=== PATIENT | male | born 1985 | race American Indian/Alaskan Native ===

== ENCOUNTER 2017-06-10 15:31 | Emergency (ER) | payer MEDICAID ==
[2017-06-10 15:48] VITALS: BP 133/76; PULSE 77; RESP 18; TEMP 98.5; O2SAT 98
--- NOTE | 2017-06-10 16:10 | ED PDOC ---
HPI:Nausea, Vomiting, Diarrhea Time Seen by Provider: 06/10/17 15:55 Chief Complaint (Nursing): Shortness Of Breath Chief Complaint (Provider): Chest discomfort/Diarrhea History Per: Patient History/Exam Limitations: no limitations Onset/Duration Of Symptoms: Days Current Symptoms Are (Timing): Still Present Have you had recent travel within the past 21 days to any of the following countries: [place], [place], [place] or [place]?: No Pain Scale Rating Of: 0 Quality Of Discomfort: Other (Congestion) Associated Symptoms: Diarrhea (3 soft diarrhea NBNM) Alleviating Factors: Other ("Burping") Additional Complaint(s): 31 y/o M with PMH of intermittent asthma present to ED because of persistent chest discomfort for the past 2 days. Patient states he feels his chest congested and that sensation improves/resolves whenever he burps, which he states has been happening more often in the past couple of days than in the past. For that reason he has been trying to avoid fatty food, he stopped smoking 2 weeks ago, denies ETOH ingestion for the past 2 weeks. Denies CP, headaches, palpitations, abd pain, blood in stools, vomiting or nausea. Admits heartburn sometimes. Patient has had 3 episodes of soft stools today NBNM. Denies recent traveling. Patient does not have a PMD Past Medical History Vital Signs: Last Vital Signs Temp 98.5 F 06/10/17 15:47 Pulse 77 06/10/17 15:47 Resp 18 06/10/17 15:47 BP 133/76 06/10/17 15:47 Pulse Ox 98 06/10/17 15:47 - Medical History PMH: Asthma - Surgical History Other surgeries: Knee Sx - Family History Family History: States: CAD (Father at the age of 52 ) - Social History Current smoker - smoking cessation education provided: No (Quit 2 weeks ago) Alcohol: Occasional Drugs: Denies - Immunization History Hx Tetanus Toxoid Vaccination: No Hx Influenza Vaccination: No Hx Pneumococcal Vaccination: No - Home Medications Home Medications: Ambulatory Orders Medication Instructions Recorded Omeprazole 20 mg PO DAILY #14 tablet. 06/10/17 - Allergies Allergies/Adverse Reactions: Allergies Allergy/AdvReac Type Severity Reaction Status Date / Time Penicillins Allergy RASH Verified 06/10/17 15:36 Review of Systems ROS Statement: Except As Marked, All Systems Reviewed And Found Negative Gastrointestinal: Positive for: Diarrhea, Other (Heartburn, Bloating) Physical Exam - Reviewed Nursing Documentation Reviewed: Yes Vital Signs Reviewed: Yes - Physical Exam Appears: Positive for: Non-toxic, No Acute Distress Skin: Positive for: Normal Color Eye Exam: Positive for: EOMI, PERRL Cardiovascular/Chest: Positive for: Regular Rate, Rhythm. Negative for: Murmur Respiratory: Positive for: Normal Breath Sounds. Negative for: Crackles, Wheezing Gastrointestinal/Abdominal: Positive for: Bowel Sounds, Soft, Tenderness (Mild diffuse abd tenderness ). Negative for: Mass, Distended, Guarding, Rebound Neurologic/Psych: Positive for: Alert, Oriented - ECG ECG: Positive for: Viewed By Me (Normal) O2 Sat by Pulse Oximetry: 98 - Progress ED Course And Treament: Patient EKG normal. Symptoms consistent with dyspepsia and/or gastroenteritis. He needs to f/u with PMD. Will start him on Omeprazole PO. Instructed to avoid spicy foods, tomato sauce, canned,fried or fatty foods, ETOH, Smoking. Medical Decision Making Medical Decision Makin31 y/o M with PMHx of asthma presents for chest discomfort bloating and diarrhea Dyspepsia vs Gastroenteritis vs Acute Gastritis EKG normal Start Omeprazole PO Patient needs f/u with PMD for further testing and treatment Disposition - Clinical Impression Clinical Impression: GERD (gastroesophageal reflux disease), Dyspepsia - Patient ED Disposition Is Patient to be Admitted: No - Disposition Referrals: [facility] [Outside] Disposition: Routine/Home Disposition Time: 16:25 Condition: GOOD Additional Instructions: F/U with PMD in 2-3 days IF worsening of symptoms, vomiting, diarrhea, severe abd pain or any other concerns return to ED Prescriptions: Omeprazole 20 mg PO DAILY #14 tablet. Instructions: Gastroesophageal Reflux Disease (ED) Forms: [employer] (Surinamese)
== END 2017-06-10 16:58 | disposition home or self-care (01) ==
LOC: H.ER 15:31
DX: K21.9 Gastro-esophageal reflux disease without esophagitis (principal); J45.909 Unspecified asthma, uncomplicated; Z88.0 Allergy status to penicillin; R12 Heartburn

== ENCOUNTER 2017-06-13 10:13 | Emergency (ER) | payer MEDICAID ==
[2017-06-13 10:21] VITALS: BMI 37.6
[2017-06-13 10:26] VITALS: O2SAT 98
[2017-06-13 10:38] VITALS: BP 127/75; PULSE 71; RESP 18; TEMP 98.2
--- NOTE | 2017-06-13 10:57 | ED PDOC ---
HPI: General Adult Time Seen by Provider: 06/13/17 10:25 Chief Complaint (Nursing): Shortness Of Breath Chief Complaint (Provider): Shortness Of Breath History Per: Patient History/Exam Limitations: no limitations Onset/Duration Of Symptoms: Days (x3 weeks) Current Symptoms Are (Timing): Still Present Additional Complaint(s): 31 y/o male with a past medical history of asthma who presents to the emergency department with a complaint of intermittent shortness of breath with chest tightness x3 weeks. Denies cough, chest pain, or fever. Past Medical History Reviewed: Historical Data, Nursing Documentation, Vital Signs Vital Signs: Last Vital Signs Temp 98.2 F 06/13/17 10:37 Pulse 71 06/13/17 10:37 Resp 18 06/13/17 10:37 BP 127/75 06/13/17 10:37 Pulse Ox 98 06/13/17 10:59 - Medical History PMH: Asthma - Family History Family History: States: CAD (Father at the age of 52 ) - Social History Current smoker - smoking cessation education provided: No Alcohol: None Drugs: Denies - Immunization History Hx Tetanus Toxoid Vaccination: No Hx Influenza Vaccination: No Hx Pneumococcal Vaccination: No - Home Medications Home Medications: Ambulatory Orders Medication Instructions Recorded Albuterol HFA [Ventolin HFA 90 2 puff IH Q4H #1 puff 06/10/17 mcg/actuation (8 g)] Omeprazole 20 mg PO DAILY #14 tablet. 06/10/17 Albuterol HFA [Ventolin HFA 90 2 puff IH Q4H #1 puff 06/13/17 mcg/actuation (8 g)] predniSONE [predniSONE Tab] 10 mg PO TID #15 tab 06/13/17 - Allergies Allergies/Adverse Reactions: Allergies Allergy/AdvReac Type Severity Reaction Status Date / Time Penicillins Allergy RASH Verified 06/13/17 10:24 Review of Systems ROS Statement: Except As Marked, All Systems Reviewed And Found Negative Constitutional: Negative for: Fever Cardiovascular: Positive for: Other (Chest tightness). Negative for: Chest Pain Respiratory: Positive for: Shortness of Breath. Negative for: Cough Physical Exam - Reviewed Nursing Documentation Reviewed: Yes Vital Signs Reviewed: Yes - Physical Exam Appears: Positive for: Non-toxic, No Acute Distress Head Exam: Positive for: ATRAUMATIC, NORMAL INSPECTION, NORMOCEPHALIC Skin: Positive for: Normal Color, Warm, Dry Neck: Positive for: Normal, Supple Cardiovascular/Chest: Positive for: Regular Rate, Rhythm. Negative for: Murmur Respiratory: Positive for: Decreased Breath Sounds. Negative for: Normal Breath Sounds, Wheezing, Respiratory Distress Extremity: Positive for: Normal ROM (Full). Negative for: Calf Tenderness, Swelling Neurologic/Psych: Positive for: Alert, Oriented - ECG O2 Sat by Pulse Oximetry: 98 (RA) Pulse Ox Interpretation: Normal Medical Decision Making Medical Decision Making: Time: 10:46 Initial impression: Shortness of breath Initial plan: --Chest Two Views --Prednisone 20 mg PO --Reevaluation Scribe Attestation: Documented by Racquel Candelario, acting as a scribe for Kevin Pena MD. Provider Scribe Attestation: All medical record entries made by the Scribe were at my direction and personally dictated by me. I have reviewed the chart and agree that the record accurately reflects my personal performance of the history, physical exam, medical decision making, and the department course for this patient. I have also personally directed, reviewed, and agree with the discharge instructions and disposition. Disposition - Clinical Impression Clinical Impression: Asthma - Patient ED Disposition Is Patient to be Admitted: No Counseled Patient/Family Regarding: Studies Performed, Diagnosis, Need For Followup, Rx Given - Disposition Referrals: [facility] [Outside] Disposition: Routine/Home Disposition Time: 11:10 Condition: FAIR Prescriptions: Albuterol HFA [Ventolin HFA 90 mcg/actuation (8 g)] 2 puff IH Q4H #1 puff predniSONE [predniSONE Tab] 10 mg PO TID #15 tab Instructions: Asthma (ED) Forms: [employer] (Belarusian)
--- NOTE | 2017-06-13 12:57 | RAD ---
HISTORY: cough COMPARISON: No prior. TECHNIQUE: Chest PA and lateral FINDINGS: LUNGS: No active pulmonary disease. PLEURA: No significant pleural effusion identified. No pneumothorax apparent. CARDIOVASCULAR: Normal. OSSEOUS STRUCTURES: No significant abnormalities. VISUALIZED UPPER ABDOMEN: Normal. OTHER FINDINGS: None. IMPRESSION: No active disease.
== END 2017-06-13 11:39 | disposition home or self-care (01) ==
LOC: H.ER 10:13
DX: J45.909 Unspecified asthma, uncomplicated (principal); Z88.0 Allergy status to penicillin

== ENCOUNTER 2017-12-23 08:15 | Emergency (ER) | payer MEDICAID ==
[2017-12-23 08:15] VITALS: BMI 37.6
[2017-12-23 08:35] VITALS: O2SAT 98
--- NOTE | 2017-12-23 09:50 | RAD ---
HISTORY: chest pain COMPARISON: 06/13/2017 TECHNIQUE: Chest PA and lateral FINDINGS: LUNGS: No active pulmonary disease. PLEURA: No significant pleural effusion identified. No pneumothorax apparent. CARDIOVASCULAR: Normal. OSSEOUS STRUCTURES: No significant abnormalities. VISUALIZED UPPER ABDOMEN: Normal. OTHER FINDINGS: None. IMPRESSION: No active disease.
--- NOTE | 2017-12-23 09:59 | ED PDOC ---
HPI: Chest Pain Time Seen by Provider: 12/23/17 09:10 Chief Complaint (Nursing): Chest Pain Chief Complaint (Provider): Dyspnea, Chest Pain History Per: Patient History/Exam Limitations: no limitations Onset/Duration Of Symptoms: Days (x 1) Current Symptoms Are (Timing): Still Present Additional Complaint(s): Gab is a 32 y/o male who presents to the ED complaining of difficulty breathing and chest discomfort that started yesterday and got worse this morning , prompting his visit. Patient states the symptoms are not painful but notes he feels congested and short of breath. He denies fever, cough, dizziness, back pain, or radiation of symptoms in the last 2 days. He thinks the cause might be gas because he was diagnosed with acid reflux before but is not on any medication. PMD: None Past Medical History Reviewed: Historical Data, Nursing Documentation, Vital Signs Vital Signs: Last Vital Signs Temp 98.2 F 12/23/17 08:34 Pulse 75 12/23/17 08:45 Resp 16 12/23/17 08:34 BP 124/81 12/23/17 08:34 Pulse Ox 98 12/23/17 10:12 - Medical History PMH: Asthma (mild, not on medication), GERD - Surgical History Other surgeries: left knee surgery - Family History Family History: States: CAD (Father at the age of 52 ) - Immunization History Hx Tetanus Toxoid Vaccination: No Hx Influenza Vaccination: No Hx Pneumococcal Vaccination: No - Home Medications Home Medications: Ambulatory Orders Medication Instructions Recorded Albuterol HFA [Ventolin HFA 90 2 puff IH Q4H #1 puff 06/10/17 mcg/actuation (8 g)] Albuterol HFA [Ventolin HFA 90 2 puff IH Q4H #1 puff 06/13/17 mcg/actuation (8 g)] predniSONE [predniSONE Tab] 10 mg PO TID #15 tab 06/13/17 Omeprazole 20 mg PO DAILY #30 tablet. 12/23/17 - Allergies Allergies/Adverse Reactions: Allergies Allergy/AdvReac Type Severity Reaction Status Date / Time Penicillins Allergy RASH Verified 06/13/17 10:24 DORA Risk Score for UA/NSTEMI - DORA Risk Score Age > 64: NO 3 or more CAD Risk Factors: NO Known CAD (Stenosis greater than 50%): NO Aspirin use in past 7 days: NO Severe Angina: NO EKG ST changes greater than 0.5mm: NO Positive Cardiac Marker: NO DORA Score: 0 Risk %: 5% Wells Criteria for PE - Wells Criteria for Pulmonary Embolism Clinical Signs and Symptoms of DVT: No P.E is #1 Diagnosis, or Equally Likely: No Heart Rate >100: No Immobilization at least 3 days;Surgery previous 4 weeks: No Previous, objectively diagnosed PE or DVT: No Hemoptysis: No Malignancy w/treatment within 6 months, or palliative: No Total Score: 0 Review of Systems ROS Statement: Except As Marked, All Systems Reviewed And Found Negative Constitutional: Negative for: Fever Cardiovascular: Positive for: Chest Pain (discomfort) Respiratory: Positive for: Shortness of Breath. Negative for: Cough Musculoskeletal: Negative for: Back Pain Neurological: Negative for: Dizziness Physical Exam - Reviewed Nursing Documentation Reviewed: Yes Vital Signs Reviewed: Yes - Physical Exam Appears: Positive for: Non-toxic, No Acute Distress Head Exam: Positive for: ATRAUMATIC, NORMOCEPHALIC Skin: Positive for: Normal Color, Warm, Dry Eye Exam: Positive for: EOMI, Normal appearance, PERRL Neck: Positive for: Normal, Painless ROM, Supple Cardiovascular/Chest: Positive for: Regular Rate, Rhythm. Negative for: Murmur Respiratory: Positive for: Normal Breath Sounds. Negative for: Respiratory Distress Gastrointestinal/Abdominal: Positive for: Normal Exam, Soft. Negative for: Tenderness Back: Positive for: Normal Inspection. Negative for: L CVA Tenderness, R CVA Tenderness, Vertebral Tenderness Extremity: Positive for: Normal ROM. Negative for: Pedal Edema, Deformity Neurologic/Psych: Positive for: Alert, Oriented. Negative for: Motor/Sensory Deficits - Laboratory Results Result Diagrams: 12/23/17 09:32 12/23/17 09:32 - ECG ECG: Positive for: Interpreted By Me, Viewed By Me ECG Rhythm: Positive for: Normal QRS, Normal ST Segment, Sinus Rhythm. Negative for: ST/T Changes Rate: 74 O2 Sat by Pulse Oximetry: 98 (RA) Pulse Ox Interpretation: Normal - Radiology X-Ray: Interpreted by Me, Viewed By Me, Read By Radiologist X-Ray Interpretation: No Acute Disease Medical Decision Making Medical Decision Making: Time: 9:23 Initial Impression: Chest Pain; Differentials include ACS, GERD, less likely asthma Initial Plan: --EKG --BMP --Troponin --CBC --Chest XR Time: 9:48 CHEST XR FINDINGS: LUNGS: No active pulmonary disease. PLEURA: No significant pleural effusion identified. No pneumothorax apparent. CARDIOVASCULAR: Normal. OSSEOUS STRUCTURES: No significant abnormalities. VISUALIZED UPPER ABDOMEN: Normal. OTHER FINDINGS: None. IMPRESSION: No active disease. Scribe Attestation: Documented by Ramirez White, acting as a scribe for Dr. Angel Alford MD. Provider Scribe Attestation: All medical record entries made by the Scribe were at my direction and personally dictated by me. I have reviewed the chart and agree that the record accurately reflects my personal performance of the history, physical exam, medical decision making, and the department course for this patient. I have also personally directed, reviewed, and agree with the discharge instructions and disposition. Disposition - Clinical Impression Clinical Impression: GERD (gastroesophageal reflux disease), Chest pain - Patient ED Disposition Is Patient to be Admitted: No Doctor Will See Patient In The: Office Counseled Patient/Family Regarding: Studies Performed, Diagnosis, Need For Followup - Disposition Referrals: [facility] [Outside] Disposition: Routine/Home Disposition Time: 12:27 Condition: GOOD Additional Instructions: Take your medications as instructed. Follow up with your PCP in 2-3 days. Prescriptions: Omeprazole 20 mg PO DAILY #30 tablet. Instructions: Chest Pain (ED), Gastroesophageal Reflux Disease (ED)
[2017-12-23 10:05] LABS: BASO # 0.1 K/uL (0.0-0.2); BASO % 1.2 % (0.0-2.0); EOS # 0.2 K/uL (0.0-0.7); HEMOGLOBIN 15.5 g/dL (12.0-18.0); LYMPH # 1.8 K/uL (1.0-4.3); LYMPH % 32.1 % (20.0-40.0); MEAN CELL VOLUME 83.4 fl (80.0-94.0); MEAN CORPUSCULAR HGB CONC 33.6 g/dL (33.0-37.0); MONO # 0.6 K/uL (0.0-0.8); MONO % 10.5 % (0.0-10.0); NEUT # 2.9 K/uL (1.8-7.0); NEUT % 53.2 % (50.0-75.0); NRBC % 0.3 % (0.0-0.0); RBC 5.51 Mil/uL (4.40-5.90); RED CELL DISTRIBUTION WIDTH 14.4 % (11.5-14.5); WHITE BLOOD COUNT 5.5 K/uL (4.8-10.8)
[2017-12-23 10:16] LABS: BLOOD UREA NITROGEN 18 mg/dl (9-20); CALCIUM 9.6 mg/dL (8.4-10.2); GFR AFRICAN-AMERICAN > 60; GFR NON-AFRICAN AMERICAN > 60
[2017-12-23 12:29] VITALS: PULSE 74
[2017-12-23 12:51] VITALS: BP 122/75; RESP 14; TEMP 98
--- NOTE | 2017-12-23 14:06 | CARD ---
APPROVED REPORT EKG Measurement Heart [id number] <Conclusion> Normal sinus rhythm Normal ECG
== END 2017-12-23 12:48 | disposition home or self-care (01) ==
LOC: H.ER 08:15
DX: K21.9 Gastro-esophageal reflux disease without esophagitis (principal); R07.89 Other chest pain

== ENCOUNTER 2018-11-19 12:01 | Emergency (ER) | payer MEDICAID ==
[2018-11-19 12:10] VITALS: BMI 41.5
[2018-11-19 12:16] VITALS: RESP 18
--- NOTE | 2018-11-19 13:28 | ED PDOC ---
HPI: General Adult Time Seen by Provider: 11/19/18 12:27 Chief Complaint (Nursing): Back Pain Chief Complaint (Provider): Back Pain History Per: Patient History/Exam Limitations: no limitations Onset/Duration Of Symptoms: Days (x2 weeks) Current Symptoms Are (Timing): Still Present Additional Complaint(s): 33 year old male with hx of back problems presents to the ED for evaluation of lower back pain s/p picking a heavy object up off the ground two weeks ago. He states he was advised by his coworkers to follow up with a "doctor from work," and was evaluated four days ago, sent home with scripts for an ant-inflammatory and a muscle relaxer, which he reports using with moderate relief of pain. However, four days ago he also notes developing weakness, nausea, and radiation of the back pain into his groin area and testicles. Otherwise denies vomiting, headache, chest pain, shortness of breath, palpitations, dysuria, hematuria, incontinence, saddle paresthesias, fever, and chills. Of note, patient last took medication yesterday evening and had none today. PMD: none provided Past Medical History Reviewed: Historical Data, Nursing Documentation, Vital Signs Vital Signs: Last Vital Signs Temp 98.7 F 11/19/18 12:13 Pulse 88 11/19/18 12:13 Resp 18 11/19/18 12:13 BP 160/92 H 11/19/18 12:13 Pulse Ox 100 11/19/18 12:13 - Medical History PMH: Asthma (mild, not on medication), Back Problems, GERD, Sexually Transmitted Disease (chlamydia and gonorrhea) - Surgical History Other surgeries: left knee surgery - Family History Family History: States: CAD (Father at the age of 52 ) - Social History Current smoker - smoking cessation education provided: No Ex-Smoker (has not smoked in the last 12 months): Yes Alcohol: Social Drugs: Denies - Immunization History Hx Tetanus Toxoid Vaccination: No Hx Influenza Vaccination: No Hx Pneumococcal Vaccination: No - Home Medications Home Medications: Ambulatory Orders Medication Instructions Recorded Albuterol HFA [Ventolin HFA 90 2 puff IH Q4H #1 puff 06/13/17 mcg/actuation (8 g)] Ibuprofen [Motrin Tab] 600 mg PO QID #42 tab 10/27/18 - Allergies Allergies/Adverse Reactions: Allergies Allergy/AdvReac Type Severity Reaction Status Date / Time Penicillins Allergy RASH Verified 11/19/18 12:12 Review of Systems ROS Statement: Except As Marked, All Systems Reviewed And Found Negative Constitutional: Positive for: Weakness. Negative for: Fever, Chills Cardiovascular: Negative for: Chest Pain, Palpitations Respiratory: Negative for: Shortness of Breath Gastrointestinal: Positive for: Nausea. Negative for: Vomiting Genitourinary Male: Negative for: Dysuria, Incontinence, Hematuria Musculoskeletal: Positive for: Back Pain (lower radiating to groin and testicles) Neurological: Negative for: Headache, Other (saddle paresthesias) Physical Exam - Reviewed Nursing Documentation Reviewed: Yes Vital Signs Reviewed: Yes - Physical Exam Appears: Positive for: No Acute Distress Head Exam: Positive for: ATRAUMATIC, NORMOCEPHALIC Skin: Positive for: Normal Color, Warm, DRY Eye Exam: Positive for: EOMI, Normal appearance, PERRL Neck: Positive for: Normal, Painless ROM, Supple Cardiovascular/Chest: Positive for: Regular Rate, Rhythm Respiratory: Positive for: Normal Breath Sounds. Negative for: Respiratory Distress Gastrointestinal/Abdominal: Positive for: Normal Exam, Soft. Negative for: Tenderness Back: Positive for: Normal Inspection. Negative for: L CVA Tenderness, R CVA Tenderness, Vertebral Tenderness Extremity: Positive for: Normal ROM, Other (bilateral upper and lower extremi ties strength 5/5) Neurologic/Psych: Positive for: Alert, Oriented (x3). Negative for: Motor/Sensory Deficits - Laboratory Results Result Diagrams: 11/19/18 13:29 11/19/18 13:29 - ECG O2 Sat by Pulse Oximetry: 100 (RA) Pulse Ox Interpretation: Normal - Progress ED Course And Treament: TVUS: Negative study for epididymitis, orchitis, torsion or testicular mass. Additional benign and/or incidental findings described above. Informed of resutls and need for further evaluation of inguinal LAD. Agrees with plan and care. Advised to f/u with [facility] for further evaluation but is to return to ED immediately if symptoms worsen. Pt. verbalized correct understanding of f/u and treatment plan to provider. Medical Decision Making Medical Decision Making: Time: 1300 Initial Impression: lower back pain Initial Plan: --CMP --Drug screen --CBC with differential --Urinalysis --US testes duplex Scribe Attestation: Documented by Rosana Varghese, acting as a scribe for Camron López PA-C. Provider Scribe Attestation: All medical record entries made by the Scribe were at my direction and personally dictated by me. I have reviewed the chart and agree that the record accurately reflects my personal performance of the history, physical exam, med Share Some Style decision making, and the department course for this patient. I have also personally directed, reviewed, and agree with the discharge instructions and disposition. Disposition - Clinical Impression Clinical Impression: Weakness, Low back pain - Patient ED Disposition Is Patient to be Admitted: No - Disposition Referrals: [facility] [Outside] Disposition: Routine/Home Disposition Time: 15:00 Condition: STABLE Additional Instructions: FOLLOW UP WITH [facility] FOR FURTHER EVALUATION RETURN TO ED IMMEDIATELY IF SYMPTOMS WORSEN TOY RODRIGUEZ, thank you for letting us take care of you today. Your provider was Bruna Douglas MD and you were treated for WEAKNESS,NAUSEA. The emergency medical care you received today was directed at your acute symptoms. If you were prescribed any medication, please fill it and take as directed. It may take several days for your symptoms to resolve. Return to the Emergency Department if your symptoms worsen, do not improve, or if you have any other problems. Please contact your doctor or call one of the physicians/clinics you have been referred to that are listed on the Patient Visit Information form that is included in your discharge packet. Bring any paperwork you were given at discharge with you along with any medications you are taking to your follow up visit. Our treatment cannot replace ongoing medical care by a primary care provider outside of the emergency department. Thank you for allowing the [facility] team to be part of your care today. If you had an X-Ray or CT scan: A Radiologist will review the ED reading if any change in treatment is needed we will contact you. If you had a blood, urine, or wound culture: It will take several days for the results, if any change in treatment is needed we will contact you. If you had an STI test: It will take 48 hours for the results. Please call after 1 week if you have not heard back. Instructions: Weakness (ED), Low Back Pain (DC) Forms: [employer] (Lithuanian)
[2018-11-19 13:49] LABS: BASO # 0.1 K/uL (0.0-0.2); BASO % 0.8 % (0.0-2.0); EOS # 0.1 K/uL (0.0-0.7); EOS % 1.8 % (0.0-4.0); HEMOGLOBIN 16.1 g/dL (12.0-18.0); LYMPH # 1.7 K/uL (1.0-4.3); LYMPH % 24.1 % (20.0-40.0); MEAN CELL VOLUME 83.8 fl (80.0-94.0); MEAN CORPUSCULAR HEMOGLOBIN 28.3 pg (27.0-31.0); MEAN CORPUSCULAR HGB CONC 33.8 g/dL (33.0-37.0); MEAN PLATELET VOLUME 10.9 fl (7.2-11.7); MONO # 0.7 K/uL (0.0-0.8); MONO % 9.8 % (0.0-10.0); NEUT # 4.5 K/uL (1.8-7.0); NEUT % 63.5 % (50.0-75.0); NRBC % 0.2 % (0.0-0.0); RBC 5.68 Mil/uL (4.40-5.90); RED CELL DISTRIBUTION WIDTH 14.3 % (11.5-14.5)
[2018-11-19 13:54] LABS: URINE AMORPHOUS SEDIMENT RARE /ul (<OCC); URINE BILIRUBIN NEGATIVE (NEGATIVE); URINE BLOOD NEGATIVE (NEGATIVE); URINE CLARITY CLEAR (Clear); URINE COLOR YELLOW (YELLOW); URINE GLUCOSE (UA) NEG (NEGATIVE); URINE LEUKOCYTE ESTERASE NEG Leu/uL (Negative); URINE PROTEIN NEGATIVE (NEGATIVE); URINE UROBILINOGEN 0.2-1.0 mg/dL (0.2-1.0)
[2018-11-19 14:02] LABS: ALB/GLOB RATIO 1.1 (1.0-2.1); ALBUMIN 4.5 g/dL (3.5-5.0); ALT/SGPT 37 U/L (21-72); AST/SGOT 40 U/L (17-59); BLOOD UREA NITROGEN 17 mg/dl (9-20); CALCIUM 9.7 mg/dL (8.4-10.2); GFR NON-AFRICAN AMERICAN > 60
[2018-11-19 14:29] LABS: BARBITURATES, UR NEGATIVE (NEGATIVE); BENZODIAZEPINES, UR NEGATIVE (NEGATIVE); OPIATES, UR NEGATIVE (NEGATIVE); PHENCYCLIDINE, UR NEGATIVE (NEGATIVE)
--- NOTE | 2018-11-19 14:39 | US ---
Date of service: 11/19/2018 HISTORY: b/l groin pain TECHNIQUE: Realtime sonography through the scrotum with color and doppler flow. COMPARISON: None Available. FINDINGS: RIGHT TESTICLE: Measures 1.7 x 2.5 x 3.2 cm. Normal echotexture and flow. RIGHT EPIDIDYMIS: Epididymal head measures 0.8 x 1 x 1.0 cm. Grossly unremarkable appearance with normal flow. LEFT TESTICLE: Measures 2.7 x 2.2 x 3.8 cm. Normal echotexture and flow. LEFT EPIDIDYMIS: Epididymal head measures 0.9 x 1 x 1.2 cm. Left epididymal cyst 3 x 5 mm. HYDROCELE: Trace, bilaterally symmetrical and presumed physiologic hydroceles. VARICOCELE: None. OTHER FINDINGS: Morphologically, unremarkable lymph node(s) including right inguinal region measuring 0.7 x 1.7 cm. The largest left inguinal lymph node 0.7 x 2.7 cm IMPRESSION: Negative study for epididymitis, orchitis, torsion or testicular mass. Additional benign and/or incidental findings described above..
[2018-11-19 16:37] VITALS: BP 138/79; PULSE 86; TEMP 98.9
[2018-11-19 16:42] VITALS: O2SAT 98
== END 2018-11-19 16:25 | disposition home or self-care (01) ==
LOC: H.ER 12:01
DX: M54.5 Low back pain (principal); R53.1 Weakness; J45.909 Unspecified asthma, uncomplicated; Z87.891 Personal history of nicotine dependence; Z88.0 Allergy status to penicillin

== ENCOUNTER 2018-12-01 17:58 | Emergency (ER) | payer BC, MEDICAID ==
[2018-12-01 17:58] VITALS: BMI 41.5
--- NOTE | 2018-12-01 21:44 | ED PDOC ---
HPI: Chest Pain Time Seen by Provider: 12/01/18 21:26 Chief Complaint (Nursing): Chest Pain Chief Complaint (Provider): chest pain History Per: Patient History/Exam Limitations: no limitations Onset/Duration Of Symptoms: Days (3) Current Symptoms Are (Timing): Still Present Quality: Burning Additional Complaint(s): 33 y/o male presents for evaluation of midsternal chest pain x 3 days. Patient reports a "burning, acid sensation" in chest, with excessive belching. Denies fever, nausea/vomiting, shortness of breath, palpitations, abdominal pain, changes in bowel movements, urinary symptoms, recent travel. Tried mylanta with little improvement Past Medical History Reviewed: Historical Data, Nursing Documentation, Vital Signs Vital Signs: Last Vital Signs Temp 98.1 F 12/01/18 18:17 Pulse 101 H 12/01/18 18:17 Resp 16 12/01/18 18:17 BP 142/92 H 12/01/18 18:17 Pulse Ox 97 12/01/18 18:17 - Medical History PMH: Asthma (mild, not on medication), Back Problems, GERD, Sexually Transmitted Disease (chlamydia and gonorrhea) - Family History Family History: States: CAD (Father at the age of 52 ) - Immunization History Hx Tetanus Toxoid Vaccination: No Hx Influenza Vaccination: No Hx Pneumococcal Vaccination: No - Home Medications Home Medications: Ambulatory Orders Medication Instructions Recorded Albuterol HFA [Ventolin HFA 90 2 puff IH Q4H #1 puff 06/13/17 mcg/actuation (8 g)] Ibuprofen [Motrin Tab] 600 mg PO QID #42 tab 10/27/18 - Allergies Allergies/Adverse Reactions: Allergies Allergy/AdvReac Type Severity Reaction Status Date / Time Penicillins Allergy RASH Verified 11/19/18 12:12 DORA Risk Score for UA/NSTEMI - DORA Risk Score Age > 64: NO 3 or more CAD Risk Factors: NO Known CAD (Stenosis greater than 50%): NO Aspirin use in past 7 days: NO Severe Angina: NO EKG ST changes greater than 0.5mm: NO Positive Cardiac Marker: NO DORA Score: 0 Risk %: 5% Review of Systems ROS Statement: Except As Marked, All Systems Reviewed And Found Negative Cardiovascular: Positive for: Chest Pain Physical Exam - Reviewed Nursing Documentation Reviewed: Yes Vital Signs Reviewed: Yes - Physical Exam Appears: Positive for: Well, Non-toxic, No Acute Distress Head Exam: Positive for: ATRAUMATIC, NORMAL INSPECTION, NORMOCEPHALIC Skin: Positive for: Normal Color Eye Exam: Positive for: Normal appearance ENT: Positive for: Normal ENT Inspection Cardiovascular/Chest: Positive for: Regular Rate, Rhythm Respiratory: Positive for: Normal Breath Sounds Gastrointestinal/Abdominal: Positive for: Normal Exam Back: Positive for: Normal Inspection Extremity: Positive for: Normal ROM Neurologic/Psych: Positive for: Alert, Oriented (x3) - Laboratory Results Result Diagrams: 12/01/18 22:40 12/01/18 22:40 - ECG ECG: Positive for: Viewed By Me (reviewed by ED attending) ECG Rhythm: Positive for: Sinus Rhythm O2 Sat by Pulse Oximetry: 97 - Radiology X-Ray: Viewed By Me X-Ray Interpretation: No Acute Disease - Progress ED Course And Treament: -cbc -cmp -troponin -ekg -cxr -color television console monitor -IV pepcid On re-eval, patient states he is feeling better Patient educated on findings, discharged with instructions to follow up with PMD within 2-3 days Return precautions given Disposition - Clinical Impression Clinical Impression: Chest pain - Patient ED Disposition Is Patient to be Admitted: No Counseled Patient/Family Regarding: Studies Performed, Diagnosis, Need For Followup, Rx Given - Disposition Referrals: [facility] [Outside] Disposition: Routine/Home Disposition Time: 00:08 Condition: IMPROVED Instructions: Chest Pain Forms: [employer] (Turkish)
[2018-12-01 23:51] LABS: BASO # 0.1 K/uL (0.0-0.2); BASO % 1.1 % (0.0-2.0); EOS # 0.3 K/uL (0.0-0.7); EOS % 3.2 % (0.0-4.0); HEMOGLOBIN 15.3 g/dL (12.0-18.0); LYMPH # 2.5 K/uL (1.0-4.3); LYMPH % 31.4 % (20.0-40.0); MEAN CELL VOLUME 84.2 fl (80.0-94.0); MEAN CORPUSCULAR HEMOGLOBIN 28.1 pg (27.0-31.0); MEAN CORPUSCULAR HGB CONC 33.4 g/dL (33.0-37.0); MEAN PLATELET VOLUME 11.3 fl (7.2-11.7); MONO # 0.8 K/uL (0.0-0.8); MONO % 9.4 % (0.0-10.0); NEUT # 4.5 K/uL (1.8-7.0); NEUT % 54.9 % (50.0-75.0); NRBC % 0.2 % (0.0-0.0); RBC 5.44 Mil/uL (4.40-5.90); RED CELL DISTRIBUTION WIDTH 14.7 % (11.5-14.5); WHITE BLOOD COUNT 8.1 K/uL (4.8-10.8)
[2018-12-01 23:58] LABS: ALB/GLOB RATIO 1.2 (1.0-2.1); ALBUMIN 4.7 g/dL (3.5-5.0); BLOOD UREA NITROGEN 20 mg/dl (9-20); CALCIUM 9.9 mg/dL (8.4-10.2); GFR NON-AFRICAN AMERICAN > 60
[2018-12-01 23:59] LABS: ALT/SGPT 38 U/L (21-72); AST/SGOT 45 U/L (17-59)
[2018-12-02 00:46] VITALS: BP 134/87; PULSE 83; RESP 19; TEMP 98; O2SAT 98
--- NOTE | 2018-12-02 10:38 | RAD ---
Date of service: 12/01/2018 HISTORY: chest pain COMPARISON: Chest radiograph dated 12/23/2017. TECHNIQUE: Chest PA and lateral FINDINGS: LUNGS: No active pulmonary disease. PLEURA: No significant pleural effusion identified. No pneumothorax apparent. CARDIOVASCULAR: No aortic atherosclerotic calcification present. Normal cardiac size. No pulmonary vascular congestion. OSSEOUS STRUCTURES: No significant abnormalities. VISUALIZED UPPER ABDOMEN: Normal. OTHER FINDINGS: None. IMPRESSION: No active disease.
== END 2018-12-02 00:50 | disposition home or self-care (01) ==
LOC: H.ER 17:58
DX: R07.89 Other chest pain (principal)

== ENCOUNTER 2019-02-25 21:30 | Emergency (ER) | payer BC, MEDICAID ==
[2019-02-25 21:30] VITALS: BMI 41.5
--- NOTE | 2019-02-25 23:24 | ED PDOC ---
HPI: Skin/Bite Injury Time Seen by Provider: 02/25/19 22:46 Chief Complaint (Nursing): Abnormal Skin Integrity History Per: Patient History/Exam Limitations: no limitations Onset/Duration Of Symptoms: Hrs Additional Complaint(s): 33 yo M who presents with a rash starting today. which is mildly itchy. He has not taken anything for the itching. His friend is here with the same rash. He notes he did start using a new soap. Pt denies lip or tongue swelling, fever, chest pain, difficulty breathing. Past Medical History Reviewed: Historical Data, Nursing Documentation, Vital Signs - Medical History PMH: Asthma (mild, not on medication), Back Problems, GERD, Sexually Transmitted Disease (chlamydia and gonorrhea) - Family History Family History: States: CAD (Father at the age of 52 ) - Immunization History Hx Tetanus Toxoid Vaccination: No Hx Influenza Vaccination: No Hx Pneumococcal Vaccination: No - Home Medications Home Medications: Ambulatory Orders Medication Instructions Recorded Albuterol HFA [Ventolin HFA 90 2 puff IH Q4H #1 puff 06/13/17 mcg/actuation (8 g)] Ibuprofen [Motrin Tab] 600 mg PO QID #42 tab 10/27/18 Hydrocortisone 1% Cream [Cortizone 1 appl TP Q4 PRN #1 tube 02/25/19 1% Cream] - Allergies Allergies/Adverse Reactions: Allergies Allergy/AdvReac Type Severity Reaction Status Date / Time Penicillins Allergy RASH Verified 02/25/19 22:42 Review of Systems Constitutional: Negative for: Fever, Weakness, Malaise Cardiovascular: Negative for: Chest Pain Respiratory: Negative for: Cough Skin: Positive for: Rash Physical Exam - Reviewed Nursing Documentation Reviewed: Yes Vital Signs Reviewed: Yes - Physical Exam Comments: GENERALIZED APPEARANCE: Patient is AAO x 3, in no acute distress. SKIN: Warm, dry; (-) cyanosis. Rash, erythematous hive like rash to upper chest, no vesicles, no signs of infection, spares palms and soles, (-) petechiae. No evidence of suppurativeinfection. ENMT: (-) mucous membrane involvement. (-)rash in oral mucosa Airway patent: (-) stridor, (-) hoarseness. (-)lip or tongue swelling LYMPHATIC: (-) lymphangitis. CHEST AND RESPIRATORY: (-) rales, (-) rhonchi, (-) wheezes; breath sounds equalbilaterally. Medical Decision Making Medical Decision Making: initial impression - allergic rash no lip or tongue swelling, no difficulty breathing, no fever, spares palms or soles Discussed with pt that possibly due to new soap being used, advised to stop, will give hydrocortisone cream for rash Discussed results, diagnosis, treatment, return precautions and f/u with pt who is understanding, in agreement and stable for dc Disposition - Clinical Impression Clinical Impression: Allergic dermatitis, Rash and nonspecific skin eruption - Patient ED Disposition Is Patient to be Admitted: No Counseled Patient/Family Regarding: Studies Performed, Diagnosis, Need For Followup, Rx Given - Disposition Referrals: Alex Latham MD [Medical Doctor] - Disposition: Routine/Home Disposition Time: 23:25 Condition: STABLE Additional Instructions: Take medications as prescribed, Stop using soap. Return to ED for new or worsening symptoms, fever, chest pain, lip or tongue swelling. Follow up with your doctor. Thank you for letting us take care of you today. The emergency medical care you received today was directed at your acute symptoms. If you were prescribed any medication, please fill it and take as directed. It may take several days for your symptoms to resolve. Return to the Emergency Department if your symptoms worsen, do not improve, or if you have any other problems. Please contact your doctor in 2 days for re-evaluation and follow up / or call one of the physicians/clinics you have been referred to that are listed on the Patient Visit Information form that is included in your discharge packet. Bring any paperwork you were given at discharge with you along with any medications you are taking to your follow up visit. Our treatment cannot replace ongoing medical care by a primary care provider (PCP) outside of the emergency department. Prescriptions: Hydrocortisone 1% Cream [Cortizone 1% Cream] 1 appl TP Q4 PRN #1 tube PRN Reason: Itching / Pruritus Instructions: Contact Dermatitis (DC), Topical Corticosteroid Medicines, Skin Rash Print Language: TAIWANESE - POA Present On Arrival: None
[2019-02-25 23:26] VITALS: BP 121/74; PULSE 77; RESP 18; TEMP 98.3; O2SAT 98
== END 2019-02-25 23:35 | disposition home or self-care (01) ==
LOC: H.ER 21:30
DX: L23.9 Allergic contact dermatitis, unspecified cause (principal); J45.909 Unspecified asthma, uncomplicated; Z88.0 Allergy status to penicillin